=== PATIENT | male | born 2005 | race African-American/Black ===

== ENCOUNTER 2025-09-09 09:58 | Emergency (ER) | payer OTHER ==
[~2025-09-09] VITALS: Ht 157.5 cm; Wt 83.0 kg
[2025-09-09 11:52] LABS: BASO # 0.0 10^3/uL (0.0-0.2); BASO % 0.4 % (0.0-1.0); EOS # 0.0 10^3/uL (0.0-0.5); EOS % 0.4 % (0.0-3.0); LYMPH # 2.8 10^3/uL (1.5-5.0); LYMPH % 41.3 % (24.0-44.0); MONO # 0.6 10^3/uL (0.0-0.8); MONO % 8.6 % (2.0-8.0); NEUTROPHILS # 3.3 10^3/uL (1.5-8.5); NEUTROPHILS % 49.2 % (36.0-66.0); PLATELET COUNT, AUTOMATED 248 10^3/uL (150-450)
[2025-09-09 12:18] LABS: ALT/SGPT 39 U/L (7.0-40); AST/SGOT 33 U/L (<34); CALCIUM LEVEL 9.7 MG/DL (8.5-10.1); CARBON DIOXIDE LEVEL 28 MMOL/L (20-31); CHLORIDE LEVEL 105 MMOL/L (98-107); CREATININE FOR GFR 1.12 MG/DL (0.70-1.30); GLOMERULAR FILTRATION RATE > 90.0 (>60); POTASSIUM SERUM 4.2 MMOL/L (3.5-5.1); SODIUM LEVEL 143 MMOL/L (136-145)
[2025-09-09] MEDS ORDERED: VENTAER INH (17:23)
[2025-09-09 17:25] VITALS: BP 137/63; O2SAT 96
[2025-09-09 17:31] VITALS: TEMP 98
== END 2025-09-09 17:31 | disposition home or self-care (01) ==
LOC: M ED 09:58
DX: J98.01 Acute bronchospasm (principal); Z79.51 Long term (current) use of inhaled steroids